=== PATIENT | male | born 1980 | race Caucasian/White ===

== ENCOUNTER → 2024-08-02 13:10 | Outpatient (REF) | payer BC, SELFPAY | LOC: MRI 13:10 | PROVIDERS: ATTENDING PHYSICIAN Family Medicine | DX: H05.20 Unspecified exophthalmos (principal); Z72.0 Tobacco use | CPT/HCPCS: 70543; 70553; A9575 ==

== ENCOUNTER → 2024-08-08 09:34 | Outpatient (REF) | payer BC, SELFPAY | LOC: HWRAD 09:34 | PROVIDERS: ATTENDING PHYSICIAN Family Medicine | DX: E05.90 Thyrotoxicosis, unspecified without thyrotoxic crisis or storm (principal) | CPT/HCPCS: 76536 ==